=== PATIENT | female | born 1980 | race Caucasian/White ===

== ENCOUNTER 2018-04-18 20:25 | Inpatient (IN) | payer OTHER ==
--- NOTE | 2018-04-18 21:10 | HP ---
General Information - General Information Maternal Age: 37 Grav: 2 Para: 1 SAB: 0 IEA: 0 Estimated Due Date: 04/19/18 Determined By: LMP Maternal Blood Type and Rh: O Positive - Results this Serology/RPR Result: Non-Reactive Rubella Result: Immune HBsAg Result: Negative HIV Result: Negative GBS Culture Result: Negative Past Medical History Delivery History: Hx Uncomplicated Vaginal Delivery Pertinent Past Medical History: Non-Contributory Past Surgical History Comment: Left knee arthroscopy Tonsillectomy Pertinent Family History: Non-Contributory - marginal previa, resolved Review of Systems Constitutional: Uncomfortable CV Complaint: No Respiratory: Shortness of Breath: No Gastrointestinal: No Nausea/Vomiting, Soft Stool Genitourinary: Leaking Fluid Musculoskeletal: Contractions, Pressure Neurological: No Headache, No Visual Changes Movement: Normal Exam Allergies/Adverse Reactions: Allergies MS Doxycycline [Doxycycline] Allergy (Verified 04/18/18 21:03) Rash - Measurements Height: 5 ft 5 in Weight: 217 lb Body Mass Index (BMI): 36.1 Pre- Weight: 186 lb - Exam Breast: - - soft, no masses Extremities: No Edema Heart: Normal Rhythm/Heart Sounds HEENT: No Significant Findings Lungs: Clear Bilaterally Thyroid: No Thyromegaly - Abdominal Exam Abdomen Exam: Non-Tender - Ultrasound/Biophysical Profile Ultrasound Status: Not Done Targeted Exam Findings Estimated Weight: 8.5-9lbs Cervical Exam: 4cm Effacement: 90% Station: -1 Presenting Part: Vertex Membrane Status: SROM Amniotic Fluid Evaluation: Clear EFM Findings - External Monitor Findings Baseline Heart Rate: 140 External Monitor Findings: Accelerations Present, No Pattern of Variable or Late Decelerations, Variability Moderate External Monitor Findings Comment: category 1 Contractions: Regular - q4, Moderate, 45-90 Seconds Assessment/Plan - Assessment at 39w 6 d in early labor, SROM - Plan Plan: Admit - Anticipate Vaginal Delivery Plan Comment: may want nitrous or epidural for pain relief - Date/Time of Admission Date of Admission: 04/18/18 Time of Admission: 20:45
[2018-04-19] MEDS ORDERED: Misoprostol TAB* 200 MCG ONE (03:25)
[2018-04-19] MEDS ORDERED: Ibuprofen TAB* 600 MG ONE (03:57)
[2018-04-19] MEDS ORDERED: Dibucaine 1% 28.35 GM TUBE PR PRN (04:06)
[2018-04-19] MEDS ORDERED: Measles, Mumps,Rubella VACC* 0.5 ML/VIAL SUBCUT ONE (04:06)
[2018-04-19] MEDS ORDERED: Glycerin ADULT SUPP PR PRN (04:06)
[2018-04-19] MEDS ORDERED: Misoprostol TAB* 200 MCG PR ONE (04:06)
[2018-04-19] MEDS ORDERED: Witch Hazel PAD* JAR TOPICAL PRN (04:06)
[2018-04-19] MEDS ORDERED: OXYTOCIN* 10 UNITS/ML 1 ML VIAL IM ONE (04:06)
--- NOTE | 2018-04-19 04:15 | PROCNOTE ---
[facility] OB: Delivery Note - Delivery A Date of : 04/19/18 Time of : 02:59 [place] Sex: Male Score 1 Minute: 9 Score 5 Minutes: 9 Gestational Age in Weeks and Days at Delivery: 40 Weeks and 0 Days Delivery Method: Spontaneous Vaginal Labor: Spontaneous Amniotic Fluid: Clear Estimated Blood Loss: 400 Anesthesia/Analgesia: None Delivered By: Poppy Ambriz - Nursery Level of Nursery: Regular/Bedside - Perineum Perineal Injury: 1st Degree Perineal Injury Comment: repaired with 3-0 and 4-0 ccg/local 1% lidocaine - Events Delivery Events of Note: Post- Bleeding - Meds Given - Additional Delivery Notes Additional Delivery Notes: SVB OA over 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 Infant pink, vigorous. Placenta Rehan. Fundus initially firm then became boggy. Pitocin 10 u IM given at 0320, followed by Cytotec 800mcg pr at 0323. EBL 400 cc.
[2018-04-19] MEDS ORDERED: OXYTOCIN* 10 UNITS/ML 1 ML VIAL ONE (11:48)
[2018-04-19] MEDS: Docusate CAP* 100 MG PO SCH ×3 (11:51→21:20)
[2018-04-19] MEDS: Ibuprofen TAB* 600 MG PO PRN ×2 (11:52→18:17)
[2018-04-20] MEDS: Ibuprofen TAB* 600 MG PO PRN ×4 (00:58→20:19)
[2018-04-20 07:13] LABS: Hematocrit 30 % (35-47); Hemoglobin 9.8 g/dl (12.0-16.0); Mean Corpuscular HGB Conc 33 g/dl (31-36); Mean Corpuscular Hemoglobin 28 pg (27-31); Mean Corpuscular Volume 85 fL (80-97); Mean Platelet Volume 10.3 um3 (7.4-10.4); Platelet Count 174 10^3/ul (150-450); Red Blood Count 3.46 10^6/ul (4.00-5.40); Red Cell Distribution Width 15 % (10.5-15); White Blood Count 12.7 10^3/ul (3.5-10.8)
[2018-04-20] MEDS: Docusate CAP* 100 MG PO SCH ×3 (08:11→20:20)
[2018-04-20] MEDS: Acetaminophen TAB* 325 MG PO PRN (10:48)
[2018-04-20] MEDS: Ferrous Gluconate TAB* 324 MG TAB PO SCH ×2 (14:06→20:19)
[2018-04-21] MEDS: Acetaminophen TAB* 325 MG PO PRN (04:40)
[2018-04-21] MEDS: Docusate CAP* 100 MG PO SCH (08:30)
[2018-04-21] MEDS: Ferrous Gluconate TAB* 324 MG TAB PO SCH (08:30)
[2018-04-21] MEDS: Ibuprofen TAB* 600 MG PO PRN (08:30)
[2018-04-21 08:31] VITALS: BP 129/74
== END 2018-04-21 14:30 | disposition home or self-care (01) | DRG 774 ==
LOC: MCHOBOUT 20:25 → MCHOB 20:55
PROVIDERS: ADMIT Midwife; ATTEND Midwife
PROC: 10E0XZZ Delivery of Products of Conception, External Approach (ICD-10-PCS; principal; 2018-04-19)
PROC: 0HQ9XZZ Repair Perineum Skin, External Approach (ICD-10-PCS; 2018-04-19)
DX: O70.0 First degree perineal laceration during delivery (principal); O72.1 Other immediate postpartum hemorrhage; O90.81 Anemia of the puerperium; D64.9 Anemia, unspecified; Z3A.40 40 weeks gestation of pregnancy; Z37.0 Single live birth
CPT/HCPCS: 36415; 85027; 90686; 90707; A9270-GY; J2590